=== PATIENT | female | born 2000 ===

== ENCOUNTER 2021-11-29 16:16 | Emergency (ER) | payer SELFPAY ==
[~2021-11-29] VITALS: Ht 152.4 cm; Wt 70.9 kg
[2021-11-29 16:31] VITALS: TEMP 98.4
[2021-11-29 19:23] VITALS: BP 111/77; PULSE 80
== END 2021-11-29 19:24 | disposition home or self-care (01) ==
LOC: COL.ER 16:16
DX: S06.0X9A Concussion with loss of consciousness of unspecified duration, initial encounter (principal); S16.1XXA Strain of muscle, fascia and tendon at neck level, initial encounter; S70.01XA Contusion of right hip, initial encounter; S00.81XA Abrasion of other part of head, initial encounter; W10.9XXA Fall (on) (from) unspecified stairs and steps, initial encounter